=== PATIENT | male | born 1950 | race Caucasian/White ===

== ENCOUNTER → 2017-08-21 12:29 | Outpatient (CLI) | payer MEDICARE, BC, SELFPAY ==
[2017-08-21 14:12] LABS: Prostate Specific Antigen < 0.064 ng/mL (0.10-4.00)
== END ==
PROVIDERS: Family Provider Internal Medicine; PCP Internal Medicine; Visit Provider Urology
DX: Z85.46 Personal history of malignant neoplasm of prostate (principal)
CPT/HCPCS: 36415; 84153

== ENCOUNTER 2019-03-15 11:35 | Emergency (ER) | payer MEDICARE, BC, SELFPAY ==
[2019-03-15 11:39] VITALS: BP 173/88; PULSE 59; RESP 16; TEMP 36.3; O2SAT 98; BMI 21.7
--- NOTE | 2019-03-15 11:43 | DI.RAD.S_ITS ---
PROCEDURE: XR CHEST 1V INDICATIONS: chest pain TECHNIQUE: One view of the chest was acquired. COMPARISON: None. FINDINGS: Surgical changes and devices: None. Lungs and pleura: Lungs are clear. No pleural effusions or pneumothorax. Bilateral nipple shadows are noted. Mediastinum: Mediastinal contours appear normal. Heart size is normal. Bones and chest wall: No suspicious bony lesions. Overlying soft tissues appear unremarkable. IMPRESSION: No acute cardiopulmonary findings. Dictated by: Carmelita Chakraborty M.D. on 03/15/2019 at 11:33 Approved by: Carmelita Chakraborty M.D. on 03/15/2019 at 11:33
--- NOTE | 2019-03-15 12:01 | ED_ITS ---
HPI - Dizziness General Chief Complaint: Dizziness Stated Complaint: high bp/dizziness Time Seen by Provider: 03/15/19 11:55 Source: patient Mode of arrival: Ambulatory Limitations: no limitations History of Present Illness HPI Narrative: Patient is a 68-year-old male who rolled over in bed this morning is and then immediately felt dizzy and lightheaded. He tried to get up and was even more dizzy he got down on all fours in with back to bed. Of the dizziness seemed to get better he did feel little nauseous. He had no weakness numbness tingling in any of the extremities no difficulty speaking. He is currently now has no dizziness or lightheaded at this he still feels a little nauseous. But overall is better. He was worried because 1 was having the symptoms they took his blood pressure and was noted to be elevated. Is slightly elevated here in the emergency department. He has no prior history of hypertension. MD complaint: dizziness Timing: sudden onset Description: sense of movement and room spinning Severity: mild Relieving factors: remaining still Exacerbating factors: movement Associated symptoms: nausea Related Data Previous Rx's Medication Instructions Recorded ciprofloxacin HCl [Cipro] 500 mg PO BID 5 Days #0 tab 12/09/15 hydrocodone-acetaminophen 0 tab PO Q6HP PRN #30 tab 12/09/15 ondansetron [Zofran ODT] 4 mg SUBLINGUAL Q6HP PRN #20 odt 12/09/15 meclizine 25 mg PO TID PRN #20 tab 03/15/19 ondansetron 4 mg PO Q8H PRN #10 tab 03/15/19 Allergies Allergy/AdvReac Type Severity Reaction Status Date / Time Sulfa (Sulfonamide Allergy Unknown Verified 03/15/19 11:39 Antibiotics) [SULFA (SULFONAMIDE ANTIBIOTICS)] Review of Systems Review of Systems Narrative: GENERAL: Denies chills, fatigue, malaise, fever, sweats, travel HEENT: Denies sinus pain, ear pain, sore throat, difficulty swallowing, neck pain RESPIRATORY: Denies dyspnea, cough, wheezing, hemoptysis, sputum. CARDIOVASCULAR: Denies chest pain, palpitations, orthopnea, edema GASTROINTESTINAL: Denies nausea, vomiting, abdominal pain, diarrhea, constipation, melena. : Denies dysuria, frequency, incontinence, hematuria, urinary retention, flank pain. MUSCULOSKELETAL: Denies weakness, joint pain, or bony pain SKIN: No rash, no erythema, no pruritus NEUROLOGIC: See HPI PSYCHIATRIC: No concerning psychosocial issues. 12 point review of systems is negative except for those stated above and HPI Patient History Medical History Patient denies significant medical history (Acute) Social History Smoking Status: Never smoker Smoking Status: Never smoker alcohol intake frequency: 0-2 drinks per day Substance Use Type: does not use Exam Initial Vital Signs Initial Vital Signs: Vital Signs Temperature 97.3 F L 03/15/19 11:39 Pulse Rate 59 L 03/15/19 11:39 Respiratory Rate 16 03/15/19 11:39 Blood Pressure 173/88 H 03/15/19 11:39 Pulse Oximetry 98 03/15/19 11:39 GENERAL: Well-appearing, well-nourished and in no acute distress. HEENT: Head atraumatic,EOMI, pupils reactive, face symmetric, moist mucous membranes CARDIOVASCULAR: Regular rate and rhythm without murmurs, rubs or gallops. RESPIRATORY: Breath sounds equal bilaterally, no wheezes rales or rhonchi. ABDOMEN: Soft, nontender. Normoactive bowel sounds all 4 quadrants. No guarding or rebound. EXTREMITIES: Normal range of motion, no clubbing or edema. Neurovascularly intact NEUROLOGICAL: Alert and oriented x4.Normal gait and speech. Cranial nerves II through XII grossly intact. Oceanographer Geological strength equal bilaterally moving lower extremities without difficulty SKIN: Warm, dry, no laceration, no petechiae, no rashes or lesions. Course Orders Ordered: ED Orders 03/15/19 11:43 XR chest 1V Stat EKG-12 Lead Stat 03/15/19 12:04 Complete Blood Count AUTO DIFF Stat Comprehensive Metabolic Panel Stat Lipase Stat Partial Thromboplastin Time Stat Prothrombin Time INR Stat Troponin & CK Cardiac Panel Stat 03/15/19 12:28 B Type Natriuretic Peptide Stat Discontinued Medications Ondansetron HCl (Zofran) 4 mg IV NOW ONE Stop: 03/15/19 12:15 Last Admin: 03/15/19 12:43 Dose: 4 mg Documented by: VIANNEY Vital Signs Vital signs: Vital Signs - 8 hr 03/15/19 11:39 03/15/19 12:21 03/15/19 13:06 Temperature 97.3 F L Pulse Rate 59 L 48 L 51 L Respiratory Rate 16 20 16 Blood Pressure 173/88 H Blood Pressure [Right Arm] 176/90 H 145/80 H Pulse Oximetry 98 98 99 MDM - Dizziness Lab Data Attestation: I reviewed the patient's lab results. Result diagrams: 03/15/19 12:04 03/15/19 12:04 Labs: Lab Results 03/15/19 03/15/19 03/15/19 Range/Units 12:04 12:04 12:04 WBC 6.4 (4.5-11.0) X10^3/uL RBC 5.37 (4.5-5.9) X10^6/uL Hgb 16.3 (13.5-17.5) g/dL Hct 47.6 (41-53) % MCV 88.7 (80-100) fL MCH 30.3 (26-34) PG MCHC 34.1 (30-36) % RDW 14.3 (11.6-14.8) % Plt Count 165 (150-400) X10^3/uL Neut % (Auto) 80.3 H (50-75) % Lymph % (Auto) 13.4 L (25-40) % [place] % (Auto) 5.6 (3-14) % Eos % (Auto) 0.2 L (2-4) % Baso % (Auto) 0.5 (0-2) % Neut # (Auto) 5200 (2176-4752) /uL Lymph # (Auto) 900 L (5961-4358) /uL [place] # (Auto) 400 (0-900) /uL Eos # (Auto) 0 (0-450) /uL Baso # (Auto) 0 (0-100) /uL PT 10.9 (10.1-12.7) SECONDS INR 0.9 (0.9-1.3) APTT 26 L (26.4-36.2) SECONDS Sodium 141 (137-145) mmol/L Potassium 4.1 (3.4-5.1) mmol/L Chloride 106 (98-107) mmol/L Carbon Dioxide 27 (22-32) mmol/L BUN 20 (9-20) mg/dL Creatinine 1.00 (0.66-1.25) mg/dL Estimated GFR > 60.0 (>60) mL/min BUN/Creatinine Ratio 20.0 (6-22) Glucose 118 H (80-110) mg/dL Calcium 9.4 (8.4-10.2) mg/dL Total Bilirubin 1.5 H (0.2-1.3) mg/dL AST 35 (17-59) IU/L ALT 26 (<50) IU/L Alkaline Phosphatase 62 (38-126) U/L Total Creatine Kinase 63 (55-170) U/L CK-MB (CK-2) TNP CK-MB (CK-2) Rel Index TNP Troponin I < 0.012 (0.01-0.034) ng/mL B-Natriuretic Peptide (<100) Total Protein 7.5 (6.3-8.2) g/dL Albumin 4.7 (3.5-5.0) g/dL Globulin 2.8 (1.7-4.1) g/dL Albumin/Globulin Ratio 1.7 (1.0-2.8) Lipase 72 (23-300) U/L 03/15/19 Range/Units 12:28 WBC (4.5-11.0) X10^3/uL RBC (4.5-5.9) X10^6/uL Hgb (13.5-17.5) g/dL Hct (41-53) % MCV (80-100) fL MCH (26-34) PG MCHC (30-36) % RDW (11.6-14.8) % Plt Count (150-400) X10^3/uL Neut % (Auto) (50-75) % Lymph % (Auto) (25-40) % [place] % (Auto) (3-14) % Eos % (Auto) (2-4) % Baso % (Auto) (0-2) % Neut # (Auto) (9227-5269) /uL Lymph # (Auto) (6984-3924) /uL [place] # (Auto) (0-900) /uL Eos # (Auto) (0-450) /uL Baso # (Auto) (0-100) /uL PT (10.1-12.7) SECONDS INR (0.9-1.3) APTT (26.4-36.2) SECONDS Sodium (137-145) mmol/L Potassium (3.4-5.1) mmol/L Chloride (98-107) mmol/L Carbon Dioxide (22-32) mmol/L BUN (9-20) mg/dL Creatinine (0.66-1.25) mg/dL Estimated GFR (>60) mL/min BUN/Creatinine Ratio (6-22) Glucose (80-110) mg/dL Calcium (8.4-10.2) mg/dL Total Bilirubin (0.2-1.3) mg/dL AST (17-59) IU/L ALT (<50) IU/L Alkaline Phosphatase (38-126) U/L Total Creatine Kinase (55-170) U/L CK-MB (CK-2) CK-MB (CK-2) Rel Index Troponin I (0.01-0.034) ng/mL B-Natriuretic Peptide < 100 (<100) Total Protein (6.3-8.2) g/dL Albumin (3.5-5.0) g/dL Globulin (1.7-4.1) g/dL Albumin/Globulin Ratio (1.0-2.8) Lipase (23-300) U/L ECG Data Attestation: I personally reviewed and interpreted this ECG as follows: Prior ECG tracings: available for review Interpretation: Normal sinus rhythm rate 46 Q-wave noted in lead 3 and AVF uncha nged [place] [address] elevation depression no T-wave inversion MDM Narrative Medical decision making narrative: Patient's signs and symptoms consistent with vertigo symptoms have also resolved while in the emergency department he is not requiring any medical sign or treatment for his dizziness his nausea improved and is now drinking orange juice. His this time he has no focal deficits is in symptoms resolved no need for imaging. Discharge Plan Departure Patient Disposition: Home Clinical Impression: Vertigo Instructions: DI for Vertigo Activity Restrictions/Additional Instructions: *You have been diagnosed with vertigo *What to do: This should improve with time. However it may return. *Continue to take medications as directed Meclizine 1-2 tablets every 8 hours if needed dizziness Zofran 1 tablet every 3 hours if needed for nausea or vomiting *Follow up with your primary care provider in 2-3 days *Return to ER if you should have worsening dizziness weakness or any new, worsening or concerning symptoms Prescriptions: New ondansetron 4 mg tablet,disintegrating 4 mg PO Q8H PRN (Reason: nausea and vomiting) Qty: 10 RF: 0 meclizine 25 mg tablet 25 mg PO TID PRN (Reason: dizziness) Qty: 20 RF: 0 No Action hydrocodone-acetaminophen 5 MG/325 MG tablet 0 tab PO Q6HP PRNQty: 30 RF: 0 ciprofloxacin HCl [Cipro] 500 MG tablet 500 mg PO BID 5 Days Qty: 0 RF: 0 ondansetron [Zofran ODT] 4 MG tablet,disintegrating 4 mg Sublingual Q6HP PRNQty: 20 RF: 0
[2019-03-15 12:19] LABS: INR 0.9 (0.9-1.3); Prothrombin Time 10.9 SECONDS (10.1-12.7)
[2019-03-15 12:21] VITALS: BP 176/90; PULSE 48; RESP 20; O2SAT 98
[2019-03-15 12:21] LABS: PTT Partial Thromboplastin Tim 26 SECONDS (26.4-36.2)
[2019-03-15 12:22] LABS: Alanine Aminotransferase 26 IU/L (<50); Albumin 4.7 g/dL (3.5-5.0); Albumin Globulin Ratio 1.7 (1.0-2.8); Alkaline Phosphatase 62 U/L (38-126); Aspartate Aminotransferase 35 IU/L (17-59); Bilirubin Total 1.5 mg/dL (0.2-1.3); Blood Urea Nitrogen 20 mg/dL (9-20); Calcium 9.4 mg/dL (8.4-10.2); Carbon Dioxide 27 mmol/L (22-32); Chloride 106 mmol/L (98-107); Creatine Kinase 63 U/L (55-170); Estimated Glomerular Filt Rate > 60.0 mL/min (>60); Globulin 2.8 g/dL (1.7-4.1); Glucose 118 mg/dL (80-110); HEMOLYSIS < 15 (0-50); Lipase 72 U/L (23-300); Potassium 4.1 mmol/L (3.4-5.1); Sodium 141 mmol/L (137-145); Total Protein 7.5 g/dL (6.3-8.2)
[2019-03-15 12:34] LABS: Troponin I < 0.012 ng/mL (0.01-0.034)
[2019-03-15 12:37] LABS: Add Manual Diff / Slide Review NO; Basophils Absolute Auto 0 /uL (0-100); Basophils Percent Auto 0.5 % (0-2); Eosinophils Absolute Auto 0 /uL (0-450); Eosinophils Percent Auto 0.2 % (2-4); Hematocrit 47.6 % (41-53); Hemoglobin 16.3 g/dL (13.5-17.5); Lymphocytes Absolute Auto 900 /uL (1100-4500); Lymphocytes Percent Auto 13.4 % (25-40); Mean Corpuscular HGB Conc 34.1 % (30-36); Mean Corpuscular Hemoglobin 30.3 PG (26-34); Mean Corpuscular Volume 88.7 fL (80-100); Monocytes Absolute Auto 400 /uL (0-900); Monocytes Percent Auto 5.6 % (3-14); Neutrophils Absolute Auto 5200 /uL (1500-7000); Neutrophils Percent Auto 80.3 % (50-75); Platelet Count 165 X10^3/uL (150-400); Red Blood Cell Count 5.37 X10^6/uL (4.5-5.9); Red Cell Distribution Width 14.3 % (11.6-14.8); White Blood Cell Count 6.4 X10^3/uL (4.5-11.0)
[2019-03-15] MEDS: ONDANSETRON 4 MG/2 ML INJ IV (12:43)
[2019-03-15 12:57] LABS: B Type Natriuretic Peptide < 100 (<100)
[2019-03-15 13:06] VITALS: BP 145/80; PULSE 51; RESP 16; O2SAT 99
[2019-03-15 13:39] VITALS: BP 159/82; PULSE 50; RESP 18; O2SAT 99
== END 2019-03-15 13:43 | disposition home or self-care (01) ==
PROVIDERS: Emergency Provider Emergency Medicine
DX: R42 Dizziness and giddiness (principal); R03.0 Elevated blood-pressure reading, without diagnosis of hypertension; R11.0 Nausea
CPT/HCPCS: 36415; 71045; 80053; 82550; 83690; 83880; 84484; 85025; 85610; 85730; 93005; 96374; 99284; 99285; J2405

== ENCOUNTER → 2022-02-14 09:00 | Outpatient (CLI) | payer MEDICARE, BC, SELFPAY ==
--- NOTE | 2022-02-14 | DI.RAD.S_ITS ---
PROCEDURE: XR CHEST 2V INDICATIONS: COUGH TECHNIQUE: 2 views of the chest were acquired. COMPARISON: [facility], CR, XR CHEST 1V, 03/15/2019, 12:09. FINDINGS: Surgical changes and devices: None. Lungs and pleura: Lungs are clear. No pleural effusions or pneumothorax. Mediastinum: Mediastinal contours are normal. Heart size is normal. Bones and chest wall: No suspicious bony abnormalities. Soft tissues appear unremarkable. IMPRESSION: No acute cardiopulmonary abnormality. Dictated by: Sha Marcelo M.D. on 02/14/2022 at 10:40 Approved by: Sha Marcelo M.D. on 02/14/2022 at 10:41
== END ==
PROVIDERS: PCP Physician Assistant; Referring Provider Physician Assistant; Visit Provider Physician Assistant
DX: R05.9 Cough, unspecified (principal)
CPT/HCPCS: 71046

== ENCOUNTER 2023-07-17 14:42 | Emergency (ER) | payer MEDICARE, BC, SELFPAY ==
--- NOTE | 2023-07-17 14:47 | ED.ABDPAIN ---
HPI - Abdominal Pain <Rashi Dickson PA-C - Last Filed: 07/17/23 16:13> General Chief Complaint: Urogenital-Male Stated Complaint: low back pain r side, poss kidney stone per pt Time Seen by Provider: 07/17/23 14:47 History of Present Illness HPI narrative: This is a 70-year-old male presents emergency department due to right-sided flank pain for the last 2 days stating that it is somewhat sharp in nature. He has a history of right-sided kidney stone in the past which required lithotripsy by a urologist in [place] about 2 years ago and he says the pain is very similar. States he feels mildly nauseous. Denies any hematuria, dysuria, urinary frequency, fevers, vomiting, abdominal pain, or any other concerning signs or symptoms Related Data Previous Rx's Medication Instructions Recorded hydrocodone 5 mg-acetaminophen 325 1 tab PO Q4H PRN pain #20 tabs 07/17/23 mg tablet ondansetron 4 mg disintegrating 4 mg PO Q8H PRN nausea and 07/17/23 tablet vomiting #20 tabs tamsulosin 0.4 mg capsule (Flomax) 0.4 mg PO BEDTIME #10 caps 07/17/23 Allergies Allergy/AdvReac Type Severity Reaction Status Date / Time Sulfa (Sulfonamide Allergy Unknown Verified 07/17/23 14:17 Antibiotics) [SULFA (SULFONAMIDE ANTIBIOTICS)] Review of Systems <Rashi Dickson PA-C - Last Filed: 07/17/23 16:13> Review of Systems Narrative: GENERAL: Denies chills, fatigue, malaise, fever, sweats. HEENT: Denies sinus pain, ear pain, sore throat, difficulty swallowing, dizziness. RESPIRATORY: Denies dyspnea, cough, wheezing, hemoptysis, sputum. CARDIOVASCULAR: Denies chest pain, palpitations, orthopnea, edema, GASTROINTESTINAL: Reports nausea, denies vomiting, abdominal pain, diarrhea, constipation, melena. : Denies dysuria, frequency, incontinence, hematuria, urinary retention. MUSCULOSKELETAL: denies weakness, joint pain, or bony pain SKIN: Denies rash, skin lesions, or other NEUROLOGIC: Denies weakness, headache, numbness, change in speech, confusion, seizures, incoordination. PSYCHIATRIC: No concerning psychosocial issues. Back: Reports right-sided flank pain 12 point review of systems is negative except for those stated above Patient History <Rashi Dickson PA-C - Last Filed: 07/17/23 16:13> Medical History (Updated 07/17/23 @ 16:10 by Rashi Dickson PA-C) Patient denies significant medical history Social History Smoking Status: Never smoker Smoking Status: Never smoker alcohol intake frequency: 0-2 drinks per day Substance Use Type: does not use Exam <Rashi Dickson PA-C - Last Filed: 07/17/23 16:13> Narrative Exam Narrative: GENERAL: Well-developed patient, in mild distress. HEAD: Atraumatic. Normocephalic. EYES: Pupils equal round and reactive. Extraocular motions intact. No scleral icterus. No injection or drainage. ENT: Nose without bleeding, purulent drainage. Throat without erythema, tonsillar hypertrophy or exudate. Airway patent. NECK: Trachea midline. Non tender EXTREMITIES: No edema or joint tenderness. NEURO: AOx3. SKIN: No rash or erythema of visible areas Abdomen: No abdominal tenderness to palpation Back: No flank tenderness to palpation Initial Vital Signs Initial Vital Signs: Vital Signs Temperature 97.8 F 07/17/23 14:51 Pulse Rate 51 L 07/17/23 14:51 Respiratory Rate 12 07/17/23 14:51 Blood Pressure 203/95 H 07/17/23 14:51 Pulse Oximetry 99 07/17/23 14:51 Oxygen Delivery Method Room Air 07/17/23 14:51 <Amy Stoddard MD - Last Filed: 07/17/23 18:44> Initial Vital Signs Initial Vital Signs: Vital Signs Temperature 97.8 F 07/17/23 14:51 Pulse Rate 51 L 07/17/23 14:51 Respiratory Rate 12 07/17/23 14:51 Blood Pressure 203/95 H 07/17/23 14:51 Pulse Oximetry 99 07/17/23 14:51 Oxygen Delivery Method Room Air 07/17/23 14:51 Course <Rashi Dickson PA-C - Last Filed: 07/17/23 16:13> Orders Ordered: ED Orders 07/17/23 14:50 CT abdomen pelvis wo con Stat 07/17/23 15:00 CBC Auto Diff [Complete Blood Count AUTO DIFF] Stat CMP [Comprehensive Metabolic Panel] Stat Discontinued Medications Ketorolac Tromethamine (Ketorolac 30 Mg/Ml Vial) 15 mg IV NOW ONE Stop: 07/17/23 14:55 Last Admin: 07/17/23 15:09 Dose: 15 mg Documented By: THAIS Vital Signs Vital signs: Vital Signs - 8 hr 07/17/23 14:51 07/17/23 16:02 Temperature 97.8 F Pulse Rate 51 L 48 L Respiratory Rate 12 16 Blood Pressure 203/95 H 173/88 H Pulse Oximetry 99 99 Oxygen Delivery Method Room Air <Amy Stoddard MD - Last Filed: 07/17/23 18:44> Orders Ordered: ED Orders 07/17/23 14:50 CT abdomen pelvis wo con Stat 07/17/23 15:00 CBC Auto Diff [Complete Blood Count AUTO DIFF] Stat CMP [Comprehensive Metabolic Panel] Stat Discontinued Medications Ketorolac Tromethamine (Ketorolac 30 Mg/Ml Vial) 15 mg IV NOW ONE Stop: 07/17/23 14:55 Last Admin: 07/17/23 15:09 Dose: 15 mg Documented By: THAIS Vital Signs Vital signs: Vital Signs - 8 hr 07/17/23 14:51 07/17/23 16:02 Temperature 97.8 F Pulse Rate 51 L 48 L Respiratory Rate 12 16 Blood Pressure 203/95 H 173/88 H Pulse Oximetry 99 99 Oxygen Delivery Method Room Air MDM - Abdominal Pain <Rashi Dickson PA-C - Last Filed: 07/17/23 16:13> Lab Data 07/17/23 15:00 07/17/23 15:00 Labs: Lab Results 07/17/23 Range/Units 15:00 WBC 10.4 (4.5-11.0) X10^3/uL RBC 5.02 (4.5-5.9) X10^6/uL Hgb 15.2 (13.5-17.5) g/dL Hct 45.3 (41-53) % MCV 90.2 (80-100) fL MCH 30.2 (26-34) PG MCHC 33.5 (30-36) % RDW 14.2 (11.6-14.8) % Plt Count 152 (150-400) X10^3/uL Neut % (Auto) 70.9 (50-75) % Lymph % (Auto) 15.4 L (25-40) % [place] % (Auto) 10.2 (3-14) % Eos % (Auto) 2.6 (2-4) % Baso % (Auto) 0.9 (0-2) % Neut # (Auto) 7400 H (8700-7551) /uL Lymph # (Auto) 1600 (8817-0922) /uL [place] # (Auto) 1100 H (0-900) /uL Eos # (Auto) 300 (0-450) /uL Baso # (Auto) 100 (0-100) /uL Sodium 142 (137-145) mmol/L Potassium 3.9 (3.4-5.1) mmol/L Chloride 112 H (98-107) mmol/L Carbon Dioxide 25 (22-32) mmol/L BUN 28 H (9-20) mg/dL Creatinine 1.46 H (0.66-1.25) mg/dL Estimated GFR 51 L (>60) mL/min BUN/Creatinine Ratio 19.2 (6-22) Glucose 119 H (80-110) mg/dL Calcium 9.1 (8.4-10.2) mg/dL Total Bilirubin 1.0 (0.2-1.3) mg/dL AST 33 (17-59) IU/L ALT 20 (<50) IU/L Alkaline Phosphatase 59 (38-126) U/L Total Protein 6.9 (6.3-8.2) g/dL Albumin 4.2 (3.5-5.0) g/dL Globulin 2.7 (1.7-4.1) g/dL Albumin/Globulin Ratio 1.6 (1.0-2.8) Imaging Data CT scan - abdomen/pelvis: Radiologist's Impression: [address] [address] [address] Scan Report Signed Patient: Guanako Melton MR#: [id number] : 1950 Acct:[id number] Age/Sex: 72 / M Date of Service: 07/17/23 Loc: ED Accession Number: [id number] Procedure: CT abdomen pelvis wo con Ordering Provider: Rashi Dickson P.A-C PROCEDURE: CT ABDOMEN PELVIS WO CON INDICATIONS: R flank pain hx of kidney stones TECHNIQUE: Axial sections were acquired from the lung bases to the pubic symphysis. Coronal and sagittal reformats were performed. For radiation dose reduction, the following was used: automated exposure control, adjustment of mA and/or kV according to patient size. COMPARISON: CT, KIDNEY/ URETER/BLADDER, 12/09/2015, 15:41. FINDINGS: Image quality: Diagnostic. Lower Chest: No significant findings. URINARY: Right Kidney: Mild right hydronephrosis and hydroureter with perinephric and periureteral stranding. Parapelvic cysts are present. Right Ureter: No hydroureter. Left Kidney: No stones or hydronephrosis. Left Ureter: No hydroureter. Bladder: Normal wall thickness. 3 mm stone in the bladder immediately distal to the right ureterovesicular junction. ABDOMEN: Liver: No contour-deforming solid mass. Gallbladder: Contracted Biliary ducts: No biliary dilation. Pancreas: No ductal dilation. Spleen: Size is within normal limits. Adrenal Glands: No adrenal nodules. Stomach and Bowel: Normal colonic caliber, without significant wall thickening. Peritoneum: No abnormal intraperitoneal fluid. No free air. Ventral Wall: No hernia. Abdominal Nodes: No enlarged retroperitoneal or mesenteric lymph nodes. Vessels: Aorta and inferior vena cava are normal in size. PELVIS: Pelvic Organs: Unremarkable. Pelvic Nodes: Unremarkable. Miscellaneous: No inguinal hernias are seen. Bones: Unremarkable. IMPRESSION: Mild right hydronephrosis and hydroureter secondary to recently passed stone in the bladder. Dictated by: Sejal Johnson M.D. on 07/17/2023 at 15:51 Approved by: Sejal Johnson M.D. on 07/17/2023 at 15:55 MDM Narrative Medical decision making narrative: ED course: This is a 72-year-old male presenting to the emergency department due to acute onset right flank pain. History of kidney stones. CT abdomen and pelvis showed a 3 mm stone in the bladder as well as hydroureter and moderate hydronephrosis due to a recently passed stone. Suspect stone should pass on its own. Flomax, pain medication, Zofran prescribed. Encouraged oral fluid intake. Patient has not established urologist and he will call to arrange for an outpatient appointment for follow up. Patient's pain significantly improved with IV Toradol. CBC showed no leukocytosis and low concern for infected stone. CMP showed mildly elevated kidney function suspect be due to the stone. UA did show positive for leukocytes although patient not reporting any UTI symptoms. No antibiotics were prescribed. CC: Right flank pain Complicating co-morbidities: History of kidney stones Data collected from: Previous notes Medical records reviewed: Patient was seen earlier today in the walk-in clinic due to right-sided lower back pain for the last 2 days. History of large kidney stones and states that this pain is similar. Urine was noted to be positive for leukocytes as well as blood. Patient was seen here 4 years ago due to elevated blood pressure and dizziness. No past pertinent medical history. Eventually diagnosed with vertigo and discharge. Differential considered, but not limited to: Pyelonephritis, UTI Exam documented above, pertinent findings include: No abdominal tenderness to palpation or flank tenderness to palpation Lab Test results independently reviewed as above. Pertinent findings: CBC showed no evidence of infection, CMP showed mildly elevated kidney function suspected to be due to the recent stone Imaging studies independently reviewed: CT showed a 3 mm stone in the bladder Scores Used: None MIPS Elements: None Consultations: None Treatments: IV Toradol Re-evaluations: Patient reports pain significantly improved after Toradol Discussion: Discussed plan with the patient was comfortable with the plan Diagnosis: Kidney stone Disposition: see below, along with detailed discharge instructions that have been reviewed with patient as well as indications for ED re-evaluation and additional outpatient follow up <Amy Stoddard MD - Last Filed: 07/17/23 18:44> Lab Data Labs: Lab Results 07/17/23 Range/Units 15:00 WBC 10.4 (4.5-11.0) X10^3/uL RBC 5.02 (4.5-5.9) X10^6/uL Hgb 15.2 (13.5-17.5) g/dL Hct 45.3 (41-53) % MCV 90.2 (80-100) fL MCH 30.2 (26-34) PG MCHC 33.5 (30-36) % RDW 14.2 (11.6-14.8) % Plt Count 152 (150-400) X10^3/uL Neut % (Auto) 70.9 (50-75) % Lymph % (Auto) 15.4 L (25-40) % [place] % (Auto) 10.2 (3-14) % Eos % (Auto) 2.6 (2-4) % Baso % (Auto) 0.9 (0-2) % Neut # (Auto) 7400 H (8335-8088) /uL Lymph # (Auto) 1600 (4667-8697) /uL [place] # (Auto) 1100 H (0-900) /uL Eos # (Auto) 300 (0-450) /uL Baso # (Auto) 100 (0-100) /uL Sodium 142 (137-145) mmol/L Potassium 3.9 (3.4-5.1) mmol/L Chloride 112 H (98-107) mmol/L Carbon Dioxide 25 (22-32) mmol/L BUN 28 H (9-20) mg/dL Creatinine 1.46 H (0.66-1.25) mg/dL Estimated GFR 51 L (>60) mL/min BUN/Creatinine Ratio 19.2 (6-22) Glucose 119 H (80-110) mg/dL Calcium 9.1 (8.4-10.2) mg/dL Total Bilirubin 1.0 (0.2-1.3) mg/dL AST 33 (17-59) IU/L ALT 20 (<50) IU/L Alkaline Phosphatase 59 (38-126) U/L Total Protein 6.9 (6.3-8.2) g/dL Albumin 4.2 (3.5-5.0) g/dL Globulin 2.7 (1.7-4.1) g/dL Albumin/Globulin Ratio 1.6 (1.0-2.8) Discharge Plan Departure Patient Disposition: Home Clinical Impression: Kidney stone Activity Restrictions/Additional Instructions: Thank you for coming to the [facility] Emergency Department today. As discussed you have a small stone which has recently passed you ureters in his now in the bladder. You should be able to pass the stone over the next couple of days. Please take the medications as prescribed. I also recommend you call your urologist office to arrange for an appointment for follow up. Please return to the emergency department if you develop any inability to urinate, fevers, or any other concerning signs or symptoms. I hope you feel better soon. Please follow up with your primary care provider within a week if your symptoms continue. If you do not have a primary care provider please contact the [facility] Resource line at [phone]. They will ask some questions about your medical history and help you get set up with a provider in the community. Prescriptions: New tamsulosin [Flomax] 0.4 mg capsule 0.4 mg PO BEDTIME Qty: 10 0RF ondansetron 4 mg tablet,disintegrating 4 mg PO Q8H PRN (Reason: nausea and vomiting) Qty: 20 0RF hydrocodone-acetaminophen 5-325 mg tablet 1 tab PO Q4H PRN (Reason: pain) Qty: 20 0RF Referrals: Sonia Kwon PAErnieC [Primary Care Provider] - Stand Alone Forms: Patient Portal/API ED Sign-out <Amy Stoddard MD - Last Filed: 07/17/23 18:44> Cosign ED Attending Cossocratesature Attestation: I was immediately available in the department for consultation throughout this patient's visit. Amy Stoddard MD
--- NOTE | 2023-07-17 14:50 | DI.CT.S_ITS ---
PROCEDURE: CT ABDOMEN PELVIS WO CON INDICATIONS: R flank pain hx of kidney stones TECHNIQUE: Axial sections were acquired from the lung bases to the pubic symphysis. Coronal and sagittal reformats were performed. For radiation dose reduction, the following was used: automated exposure control, adjustment of mA and/or kV according to patient size. COMPARISON: CT, KIDNEY/ URETER/BLADDER, 12/09/2015, 15:41. FINDINGS: Image quality: Diagnostic. Lower Chest: No significant findings. URINARY: Right Kidney: Mild right hydronephrosis and hydroureter with perinephric and periureteral stranding. Parapelvic cysts are present. Right Ureter: No hydroureter. Left Kidney: No stones or hydronephrosis. Left Ureter: No hydroureter. Bladder: Normal wall thickness. 3 mm stone in the bladder immediately distal to the right ureterovesicular junction. ABDOMEN: Liver: No contour-deforming solid mass. Gallbladder: Contracted Biliary ducts: No biliary dilation. Pancreas: No ductal dilation. Spleen: Size is within normal limits. Adrenal Glands: No adrenal nodules. Stomach and Bowel: Normal colonic caliber, without significant wall thickening. Peritoneum: No abnormal intraperitoneal fluid. No free air. Ventral Wall: No hernia. Abdominal Nodes: No enlarged retroperitoneal or mesenteric lymph nodes. Vessels: Aorta and inferior vena cava are normal in size. PELVIS: Pelvic Organs: Unremarkable. Pelvic Nodes: Unremarkable. Miscellaneous: No inguinal hernias are seen. Bones: Unremarkable. IMPRESSION: Mild right hydronephrosis and hydroureter secondary to recently passed stone in the bladder. Dictated by: Sejal Johnson M.D. on 07/17/2023 at 15:51 Approved by: Sejal Johnson M.D. on 07/17/2023 at 15:55
[2023-07-17 14:51] VITALS: BP 203/95; PULSE 51; RESP 12; TEMP 36.6; O2SAT 99; BMI 22.9
[2023-07-17] MEDS: KETOROLAC 30 MG/ML VIAL 15 MG IV (15:09)
[2023-07-17 15:22] LABS: Add Manual Diff / Slide Review NO; Basophils Absolute Auto 100 /uL (0-100); Basophils Percent Auto 0.9 % (0-2); Eosinophils Absolute Auto 300 /uL (0-450); Eosinophils Percent Auto 2.6 % (2-4); Hematocrit 45.3 % (41-53); Hemoglobin 15.2 g/dL (13.5-17.5); Lymphocytes Absolute Auto 1600 /uL (1100-4500); Lymphocytes Percent Auto 15.4 % (25-40); Mean Corpuscular HGB Conc 33.5 % (30-36); Mean Corpuscular Hemoglobin 30.2 PG (26-34); Mean Corpuscular Volume 90.2 fL (80-100); Monocytes Absolute Auto 1100 /uL (0-900); Monocytes Percent Auto 10.2 % (3-14); Neutrophils Absolute Auto 7400 /uL (1500-7000); Neutrophils Percent Auto 70.9 % (50-75); Platelet Count 152 X10^3/uL (150-400); Red Blood Cell Count 5.02 X10^6/uL (4.5-5.9); Red Cell Distribution Width 14.2 % (11.6-14.8); White Blood Cell Count 10.4 X10^3/uL (4.5-11.0)
[2023-07-17 15:31] LABS: Alanine Aminotransferase 20 IU/L (<50); Albumin 4.2 g/dL (3.5-5.0); Albumin Globulin Ratio 1.6 (1.0-2.8); Alkaline Phosphatase 59 U/L (38-126); Aspartate Aminotransferase 33 IU/L (17-59); BUN Creatinine Ratio 19.2 (6-22); Blood Urea Nitrogen 28 mg/dL (9-20); Calcium 9.1 mg/dL (8.4-10.2); Carbon Dioxide 25 mmol/L (22-32); Chloride 112 mmol/L (98-107); Estimated Glomerular Filt Rate 51 mL/min (>60); Globulin 2.7 g/dL (1.7-4.1); Glucose 119 mg/dL (80-110); HEMOLYSIS 27 (0-50); Potassium 3.9 mmol/L (3.4-5.1); Sodium 142 mmol/L (137-145); Total Protein 6.9 g/dL (6.3-8.2)
[2023-07-17 16:02] VITALS: BP 173/88; PULSE 48; RESP 16; O2SAT 99
== END 2023-07-17 16:29 | disposition home or self-care (01) ==
PROVIDERS: Emergency Provider Physician Assistant Medical; PCP Physician Assistant
DX: N20.0 Calculus of kidney (principal); Z87.442 Personal history of urinary calculi; R31.9 Hematuria, unspecified
CPT/HCPCS: 36415; 74176; 80053; 85025; 87086; 96374; 99284; J1885

== ENCOUNTER → 2023-07-17 14:42 | Outpatient (CLI) | payer MEDICARE, BC, SELFPAY | PROVIDERS: PCP Physician Assistant; Visit Provider Nurse Practitioner Family | DX: R31.9 Hematuria, unspecified (principal) | CPT/HCPCS: 87086 ==

== ENCOUNTER → 2023-08-29 11:31 | Outpatient (CLI) | payer MEDICARE, BC, SELFPAY | PROVIDERS: PCP Physician Assistant; Visit Provider Nurse Practitioner Family | DX: R31.9 Hematuria, unspecified (principal) | CPT/HCPCS: 87086 ==